=== PATIENT | female | born 1975 | race Caucasian/White ===

== ENCOUNTER → 2016-09-08 | Outpatient (CLI) | payer OTHER ==
[~2016-09-08] VITALS: Ht 167.6 cm; Wt 96.6 kg
[~2016-09-08] MED LIST: BACTROBAN OINT22 GM EXT; CEFUROXIME250 MG PO; CEPHALEXIN500 M1 PO; CETIRIZINE HCL10 MG PO; CLARITIN 10MG T10 MG PO; CLINDAMYCIN HC300 MG PO; ELAVIL 25 MG TA25 MG PO; FLUOXETINE HCL20 MG PO; GABAPENTIN400 MG PO; GERI-HYDROLAC140 GM TOP; HUMALOG100 UNIT/1 SQ; HUMALOG100 UNIT/3 SQ; HYDROXYZINE HCL25 MG PO; INVOKANA300 MG PO; KENALOG 0.5% CR15 GM TOP; KENALOG CREAM 015 GM TOP; LANTUS SOL100 UNIT/1 SQ; LANTUS100 UNIT/1 SQ; LEVOTHYROXINE125 MCG PO; LIPITOR TAB 2020 MG PO; MELOXICAM7.5 MG PO; METOPROLOL TART25 MG PO; NEURONTIN 400400 MG PO; NORVASC 5 MG TAB5 MG PO; OMNICEF 300 MG300 MG PO; PROZAC 20 MG CA20 MG PO; SIMVASTATIN20 MG PO; ZYRTEC10 MG PO
== END ==
LOC: OPSV 11:53
DX: M86.671 Other chronic osteomyelitis, right ankle and foot (principal)
CPT/HCPCS: 36415; 82550; 86140; 96365; J0878; J7050

== ENCOUNTER → 2016-09-15 | Outpatient (CLI) | payer OTHER | LOC: OPSV 12:40 | PROVIDERS: Internal Medicine Nephrology | DX: Z48.00 Encounter for change or removal of nonsurgical wound dressing (principal); M86.9 Osteomyelitis, unspecified; N17.9 Acute kidney failure, unspecified | CPT/HCPCS: 36592; 80053; 82043; 82550; 82570; 86140; 89050; G0463 ==

== ENCOUNTER → 2016-09-22 | Outpatient (CLI) | payer OTHER | LOC: OPSV 13:00 | DX: Z48.00 Encounter for change or removal of nonsurgical wound dressing (principal); M86.9 Osteomyelitis, unspecified | CPT/HCPCS: 36415; 86140; G0463 ==

== ENCOUNTER → 2016-09-27 | Outpatient (CLI) | payer OTHER ==
[2016-09-27 13:54] LABS: HEMOGLOBIN 12.3 gm/dl (12.3-15.3); RED BLOOD COUNT 4.13 M/UL (4.00-5.10); WHITE BLOOD COUNT 10.4 K/UL (4.5-11.0)
== END ==
LOC: OPSV 09-26 10:00
PROVIDERS: Nurse Practitioner Family
DX: M86.9 Osteomyelitis, unspecified (principal)
CPT/HCPCS: 36592; 80053; 82550; 85027; 86140; G0463

== ENCOUNTER → 2016-10-04 | Outpatient (CLI) | payer OTHER ==
[2016-10-04 17:38] LABS: HEMOGLOBIN 11.5 gm/dl (12.3-15.3); RED BLOOD COUNT 3.84 M/UL (4.00-5.10); WHITE BLOOD COUNT 10.9 K/UL (4.5-11.0)
== END ==
LOC: OPSV 11:00
PROVIDERS: Podiatrist Foot & Ankle Surgery
DX: Z48.00 Encounter for change or removal of nonsurgical wound dressing (principal); M86.9 Osteomyelitis, unspecified; N17.9 Acute kidney failure, unspecified; E11.621 Type 2 diabetes mellitus with foot ulcer
CPT/HCPCS: 36415; 80053; 82550; 85027; 86140; G0463

== ENCOUNTER → 2016-10-11 | Outpatient (CLI) | payer OTHER ==
[2016-10-11 12:14] LABS: HEMOGLOBIN 11.4 gm/dl (12.3-15.3); RED BLOOD COUNT 3.81 M/UL (4.00-5.10); WHITE BLOOD COUNT 11.2 K/UL (4.5-11.0)
== END ==
LOC: OPSV 11:40
PROVIDERS: Podiatrist Foot & Ankle Surgery
DX: E11.65 Type 2 diabetes mellitus with hyperglycemia (principal); N20.0 Calculus of kidney; M86.9 Osteomyelitis, unspecified
CPT/HCPCS: 36592; 80053; 82550; 85027; 86140; G0463

== ENCOUNTER → 2016-10-18 | Outpatient (CLI) | payer OTHER ==
[2016-10-18 12:30] LABS: HEMOGLOBIN 11.3 gm/dl (12.3-15.3); RED BLOOD COUNT 3.76 M/UL (4.00-5.10)
== END ==
LOC: OPSV 11:36
PROVIDERS: Podiatrist Foot & Ankle Surgery
DX: Z45.2 Encounter for adjustment and management of vascular access device (principal); M86.9 Osteomyelitis, unspecified
CPT/HCPCS: 36415; 80053; 82550; 85027; 86140; G0463

== ENCOUNTER → 2016-10-25 | Outpatient (CLI) | payer OTHER ==
[2016-10-25 12:17] LABS: HEMOGLOBIN 11.2 gm/dl (12.3-15.3); RED BLOOD COUNT 3.74 M/UL (4.00-5.10); WHITE BLOOD COUNT 10.2 K/UL (4.5-11.0)
== END ==
LOC: OPSV 11:40
PROVIDERS: Podiatrist Foot & Ankle Surgery
DX: M86.9 Osteomyelitis, unspecified (principal)
CPT/HCPCS: 36592; 80053; 82550; 85027; 86140; G0463

== ENCOUNTER → 2016-10-25 | Outpatient (CLI) | payer OTHER | LOC: KOH-I 08-31 14:30 | DX: I73.9 Peripheral vascular disease, unspecified (principal) | CPT/HCPCS: 93922; 93925 ==

== ENCOUNTER → 2016-11-01 | Outpatient (CLI) | payer OTHER ==
[2016-11-01 13:38] LABS: RED BLOOD COUNT 3.69 M/UL (4.00-5.10); WHITE BLOOD COUNT 9.3 K/UL (4.5-11.0)
== END ==
LOC: OPSV 10:00
PROVIDERS: Podiatrist Foot & Ankle Surgery
DX: M86.9 Osteomyelitis, unspecified (principal)
CPT/HCPCS: 36592; 80053; 82550; 85027; 86140; G0463

== ENCOUNTER → 2016-11-02 | Outpatient (CLI) | payer OTHER | LOC: OPSV 17:58 | DX: Z45.2 Encounter for adjustment and management of vascular access device (principal); M86.8X7 Other osteomyelitis, ankle and foot | CPT/HCPCS: G0463 ==

== ENCOUNTER 2016-12-11 14:59 | Emergency (ER) | payer OTHER | END 2016-12-11 16:00 | disposition left against medical advice (07) | LOC: ER1 14:59 | DX: Z53.21 Procedure and treatment not carried out due to patient leaving prior to being seen by health care provider (principal) ==

== ENCOUNTER → 2020-08-18 | Outpatient (CLI) | payer OTHER ==
[~2020-08-18] MED LIST changes: +ABILIFY 2 MG TAB2 MG PO; +ATIVAN1 MG PO; +BACTROBAN CREAM15 GM TOP; +CLEOCIN HCL300 MG PO; +CLINDAMYCIN HC150 MG PO; +CYCLOBENZAPRINE5 MG PO; +FLEXERIL 10 MG10 MG PO; +IBUPROFEN600 MG PO; +IBUPROFEN800 MG PO; +KEFLEX CAP 500500 MG PO; +LODINE CAP 300300 MG PO; +PREDNISONE 10 M10 MG PO; +TYLENOL 325MG325 MG PO; +ZOFRAN ODT4 MG PO; +ZOFRAN4 MG PO; +[UNRECOGNIZED DRUG - OTHER] SQ
== END ==
LOC: MAMO 07-23 10:00 → US 07-23 10:30 → MAMO 09:24
DX: R92.8 Other abnormal and inconclusive findings on diagnostic imaging of breast (principal); Z85.850 Personal history of malignant neoplasm of thyroid
CPT/HCPCS: 76641-LT; 76641-RT; 77066; G0279

== ENCOUNTER → 2020-09-17 | Outpatient (CLI) | payer OTHER | LOC: LAB 09:23 | PROVIDERS: Internal Medicine Nephrology | DX: N18.30 Chronic kidney disease, stage 3 unspecified (principal); E55.9 Vitamin D deficiency, unspecified | CPT/HCPCS: 36415; 80053; 82570; 84156 ==

== ENCOUNTER → 2020-12-07 | Outpatient (CLI) | payer OTHER | LOC: KOH-I 11:16 | DX: M79.671 Pain in right foot (principal) | CPT/HCPCS: 73630 ==

== ENCOUNTER → 2020-12-15 | Outpatient (CLI) | payer OTHER | LOC: EMI 09:00 | DX: R56.9 Unspecified convulsions (principal) | CPT/HCPCS: 70553; A9577 ==

== ENCOUNTER → 2020-12-23 | Outpatient (CLI) | payer OTHER | LOC: LAB 09:01 | PROVIDERS: Internal Medicine Nephrology | DX: N18.30 Chronic kidney disease, stage 3 unspecified (principal); E55.9 Vitamin D deficiency, unspecified | CPT/HCPCS: 36415; 80053; 82570; 83970; 84100; 84156 ==

== ENCOUNTER → 2021-04-26 | Outpatient (CLI) | payer OTHER | LOC: EXRD 15:30 | DX: M25.561 Pain in right knee (principal); M54.50 Low back pain, unspecified; M54.2 Cervicalgia; M47.812 Spondylosis without myelopathy or radiculopathy, cervical region; M47.816 Spondylosis without myelopathy or radiculopathy, lumbar region | CPT/HCPCS: 72050; 72100; 73564 ==

== ENCOUNTER → 2021-06-14 | Outpatient (CLI) | payer OTHER | LOC: KOH-I 13:42 | DX: M79.672 Pain in left foot (principal); M20.12 Hallux valgus (acquired), left foot | CPT/HCPCS: 73610; 73630 ==

== ENCOUNTER 2021-09-15 14:08 | Emergency (ER) | payer OTHER ==
[2021-09-15] MEDS ORDERED: IBUPROFEN800 MG PO (14:52)
== END 2021-09-15 15:15 | disposition home or self-care (01) ==
LOC: ER1 14:08
DX: M75.102 Unspecified rotator cuff tear or rupture of left shoulder, not specified as traumatic (principal)
CPT/HCPCS: 73030; 96374; 99283; J1885

== ENCOUNTER → 2021-10-25 | Outpatient (CLI) | payer OTHER | LOC: OPSV 13:17 | PROVIDERS: Internal Medicine Nephrology | DX: N18.32 Chronic kidney disease, stage 3b (principal); E55.9 Vitamin D deficiency, unspecified | CPT/HCPCS: 36415; 80053; 82570; 84156 ==

== ENCOUNTER → 2021-10-26 | Outpatient (CLI) | payer OTHER ==
[~2021-10-26] VITALS: Ht 167.6 cm; Wt 99.8 kg
== END ==
LOC: OPSV 13:35
DX: A49.8 Other bacterial infections of unspecified site (principal)
CPT/HCPCS: 96372; J0696

== ENCOUNTER → 2021-10-27 | Outpatient (CLI) | payer OTHER ==
[~2021-10-27] VITALS: Ht 167.6 cm; Wt 99.8 kg
== END ==
LOC: OPSV 13:12
DX: A49.8 Other bacterial infections of unspecified site (principal)
CPT/HCPCS: 96372; J0696

== ENCOUNTER → 2021-10-28 | Outpatient (CLI) | payer OTHER | LOC: OPSV 13:36 | DX: L08.9 Local infection of the skin and subcutaneous tissue, unspecified (principal); B96.20 Unspecified Escherichia coli [E. coli] as the cause of diseases classified elsewhere | CPT/HCPCS: 96372; J0696 ==

== ENCOUNTER → 2021-10-29 | Outpatient (CLI) | payer OTHER | LOC: OPSV 07:00 → EROP 18:33 | DX: L08.9 Local infection of the skin and subcutaneous tissue, unspecified (principal); B96.20 Unspecified Escherichia coli [E. coli] as the cause of diseases classified elsewhere | CPT/HCPCS: 96372; J0696 ==

== ENCOUNTER → 2021-10-30 | Outpatient (CLI) | payer OTHER | LOC: OPSV 07:00 | DX: L08.9 Local infection of the skin and subcutaneous tissue, unspecified (principal); B96.20 Unspecified Escherichia coli [E. coli] as the cause of diseases classified elsewhere | CPT/HCPCS: 96372; J0696 ==

== ENCOUNTER → 2021-10-31 | Outpatient (CLI) | payer OTHER ==
[~2021-10-31] VITALS: Ht 167.6 cm; Wt 99.8 kg
== END ==
LOC: OPSV 13:22
DX: B96.20 Unspecified Escherichia coli [E. coli] as the cause of diseases classified elsewhere (principal)
CPT/HCPCS: 96372; J0696

== ENCOUNTER → 2021-11-01 | Outpatient (CLI) | payer OTHER ==
[~2021-11-01] VITALS: Ht 167.6 cm; Wt 99.8 kg
== END ==
LOC: OPSV 12:39
DX: B96.20 Unspecified Escherichia coli [E. coli] as the cause of diseases classified elsewhere (principal)
CPT/HCPCS: 96372; J0696

== ENCOUNTER → 2021-11-02 | Outpatient (CLI) | payer OTHER ==
[~2021-11-02] VITALS: Ht 167.6 cm; Wt 99.8 kg
== END ==
LOC: OPSV 07:00
DX: B96.20 Unspecified Escherichia coli [E. coli] as the cause of diseases classified elsewhere (principal)
CPT/HCPCS: 96372; J0696

== ENCOUNTER → 2021-11-03 | Outpatient (CLI) | payer OTHER | LOC: OPSV 13:47 | DX: L08.9 Local infection of the skin and subcutaneous tissue, unspecified (principal); B96.20 Unspecified Escherichia coli [E. coli] as the cause of diseases classified elsewhere | CPT/HCPCS: 96372; J0696 ==

== ENCOUNTER → 2021-11-04 | Outpatient (CLI) | payer OTHER ==
[~2021-11-04] VITALS: Ht 167.6 cm; Wt 99.8 kg
== END ==
LOC: OPSV 06:26
DX: B96.20 Unspecified Escherichia coli [E. coli] as the cause of diseases classified elsewhere (principal)
CPT/HCPCS: 96372; J0696

== ENCOUNTER → 2021-11-05 | Outpatient (CLI) | payer OTHER | LOC: EROP 07:00 → OPSV 07:00 → EROP 07:08 → OPSV 07:08 → EROP 17:32 | DX: B96.20 Unspecified Escherichia coli [E. coli] as the cause of diseases classified elsewhere (principal) | CPT/HCPCS: 96372; J0696 ==

== ENCOUNTER → 2021-11-06 | Outpatient (CLI) | payer OTHER | LOC: OPSV 07:00 → EROP 14:50 | DX: L08.9 Local infection of the skin and subcutaneous tissue, unspecified (principal); B96.20 Unspecified Escherichia coli [E. coli] as the cause of diseases classified elsewhere | CPT/HCPCS: 96372; J0696 ==

== ENCOUNTER → 2021-11-07 | Outpatient (CLI) | payer OTHER | LOC: OPSV 13:36 | DX: L08.9 Local infection of the skin and subcutaneous tissue, unspecified (principal); B96.20 Unspecified Escherichia coli [E. coli] as the cause of diseases classified elsewhere | CPT/HCPCS: 96372; J0696 ==

== ENCOUNTER → 2021-11-21 | Outpatient (CLI) | payer OTHER | LOC: KOH-I 14:36 | DX: M79.672 Pain in left foot (principal); M21.611 Bunion of right foot; M19.071 Primary osteoarthritis, right ankle and foot; M25.474 Effusion, right foot | CPT/HCPCS: 73630 ==

== ENCOUNTER 2021-11-27 07:13 | Inpatient (IN) | payer OTHER ==
[~2021-11-27] VITALS: Ht 167.6 cm; Wt 99.8 kg
[~2021-11-27 07:13] MED LIST changes: +BASAGLAR K100 UNIT/1 SQ; +LEVOFLOXACIN750 MG PO; +LEVOTHYROXINE150 MCG PO; +METOPROLOL SUCC25 MG PO; -NEURONTIN 400400 MG PO; +NEURONTIN600 MG PO; +VISTARIL50 MG PO; -[UNRECOGNIZED DRUG - OTHER] SQ
[2021-11-27 08:11] LABS: HEMOGLOBIN 11.7 gm/dl (12.3-15.3); RED BLOOD COUNT 3.83 M/UL (4.00-5.10); WHITE BLOOD COUNT 10.5 K/UL (4.5-11.0)
[2021-11-27] MEDS ORDERED: BUSPIRONE HCL30 MG PO (12:04)
[2021-11-27] MEDS ORDERED: ONDANSETRON ODT4 MG PO (12:07)
[2021-11-27] MEDS ORDERED: TRAMADOL HCL50 MG PO (12:08)
[2021-11-27] MEDS ORDERED: CYCLOBENZAPRINE10 MG PO (12:10)
[2021-11-27] MEDS ORDERED: BYDUREON SQ (12:21)
[2021-11-27] MEDS ORDERED: HYDRALAZINE HCL25 MG PO (12:22)
[2021-11-27] MEDS ORDERED: ZYVOX600 MG PO (12:22)
[2021-11-27] MEDS ORDERED: MEDROXYPRO150 MG/11 IM (12:23)
[2021-11-27] MEDS ORDERED: MONTELUKAST SOD10 MG PO (12:24)
[2021-11-27] MEDS ORDERED: OMEPRAZOLE40 MG PO (12:24)
[2021-11-27] MEDS ORDERED: ABILIFY2 MG PO (12:25)
[2021-11-28 03:52] LABS: HEMOGLOBIN 11.4 gm/dl (12.3-15.3); RED BLOOD COUNT 3.71 M/UL (4.00-5.10)
[2021-11-29 06:22] LABS: HEMOGLOBIN 11.6 gm/dl (12.3-15.3); RED BLOOD COUNT 3.8 M/UL (4.00-5.10); WHITE BLOOD COUNT 12.6 K/UL (4.5-11.0)
[2021-11-30 06:26] LABS: HEMOGLOBIN 11.4 gm/dl (12.3-15.3); RED BLOOD COUNT 3.63 M/UL (4.00-5.10); WHITE BLOOD COUNT 13.9 K/UL (4.5-11.0)
[2021-12-01 06:59] LABS: HEMOGLOBIN 10.8 gm/dl (12.3-15.3); RED BLOOD COUNT 3.53 M/UL (4.00-5.10); WHITE BLOOD COUNT 10.7 K/UL (4.5-11.0)
[2021-12-02 07:03] LABS: HEMOGLOBIN 10.7 gm/dl (12.3-15.3); RED BLOOD COUNT 3.63 M/UL (4.00-5.10); WHITE BLOOD COUNT 11.3 K/UL (4.5-11.0)
[2021-12-03 06:42] LABS: HEMOGLOBIN 10.6 gm/dl (12.3-15.3); RED BLOOD COUNT 3.53 M/UL (4.00-5.10); WHITE BLOOD COUNT 12.1 K/UL (4.5-11.0)
[2021-12-04 03:36] LABS: HEMOGLOBIN 10.5 gm/dl (12.3-15.3); RED BLOOD COUNT 3.45 M/UL (4.00-5.10); WHITE BLOOD COUNT 10.1 K/UL (4.5-11.0)
--- NOTE | 2021-12-04 10:19 | NUR ---
DRESSING CHANGED TO LEFT FOOT WET PACKING
[2021-12-05 05:15] LABS: HEMOGLOBIN 10.5 gm/dl (12.3-15.3); RED BLOOD COUNT 3.46 M/UL (4.00-5.10); WHITE BLOOD COUNT 10.6 K/UL (4.5-11.0)
--- NOTE | 2021-12-05 13:29 | NUR ---
PTS DRESSINGS CHANGED ON BOTH FEET AFTER PT. GOT OUT OF SHOWER. FEET WERE WRAPPED WITH PLASTIC WHILE PT. TOOK SHOWER.
[2021-12-06 06:21] LABS: HEMOGLOBIN 10.4 gm/dl (12.3-15.3); RED BLOOD COUNT 3.44 M/UL (4.00-5.10); WHITE BLOOD COUNT 8.7 K/UL (4.5-11.0)
[2021-12-07] MEDS ORDERED: GABAPENTIN300 MG PO (10:37)
[2021-12-07] MEDS ORDERED: HUMALOG 10100 UNITS/ SC (10:37)
[2021-12-07] MEDS ORDERED: CEFEPIME 11 GM/50 ML IV (10:37)
[2021-12-07] MEDS ORDERED: ZYVOX IV 6600 MG/300 INJ (10:37)
--- NOTE | 2021-12-08 14:53 | NUR ---
1230 Patient had agreed to stay to get evening antibiotics at 5:00pm. Now states she has an appt. this afternoon that she can't miss. Dr Tolbert called to inform. She stated if patient would agree to stay we could give the IV antibiotics now, otherwise just chart the patient was noncompliant. Patient agreed to receive the Cefepime since it only takes an hour. [id number] Patient will be discharged home with Saline Lock to left forearm, #22 Gauge that was inserted last night. [facility] to be out in AM to start IV Antibiotics & also to do dressing changes to left foot.
== END 2021-12-08 15:00 | disposition home or self-care (01) | DRG 264 ==
LOC: ER1 07:13 → MED SURG 4 10:11 → CDU 10:11 → MED SURG 4 15:10
PROVIDERS: Emergency Medicine; Internal Medicine; Physician Assistant; ADMIT Internal Medicine
PROC: 02HV33Z Insertion of Infusion Device into Superior Vena Cava, Percutaneous Approach (ICD-10-PCS; principal; 2021-12-03)
PROC: 0JBP0ZZ Excision of Left Lower Leg Subcutaneous Tissue and Fascia, Open Approach (ICD-10-PCS; 2021-12-08)
PROC: 0J9P0ZZ Drainage of Left Lower Leg Subcutaneous Tissue and Fascia, Open Approach (ICD-10-PCS; 2021-12-08)
DX: E11.52 Type 2 diabetes mellitus with diabetic peripheral angiopathy with gangrene (principal); I96 Gangrene, not elsewhere classified; L03.116 Cellulitis of left lower limb; E87.1 Hypo-osmolality and hyponatremia; N17.9 Acute kidney failure, unspecified; E11.22 Type 2 diabetes mellitus with diabetic chronic kidney disease; N18.30 Chronic kidney disease, stage 3 unspecified; E03.9 Hypothyroidism, unspecified; I12.9 Hypertensive chronic kidney disease with stage 1 through stage 4 chronic kidney disease, or unspecified chronic kidney disease; E83.42 Hypomagnesemia; E11.40 Type 2 diabetes mellitus with diabetic neuropathy, unspecified; E11.65 Type 2 diabetes mellitus with hyperglycemia; E11.621 Type 2 diabetes mellitus with foot ulcer; E78.5 Hyperlipidemia, unspecified; B95.62 Methicillin resistant Staphylococcus aureus infection as the cause of diseases classified elsewhere; Z85.850 Personal history of malignant neoplasm of thyroid; Z90.89 Acquired absence of other organs; Z98.890 Other specified postprocedural states; Z88.1 Allergy status to other antibiotic agents; Z82.49 Family history of ischemic heart disease and other diseases of the circulatory system; Z83.3 Family history of diabetes mellitus; Z79.4 Long term (current) use of insulin; Z79.899 Other long term (current) drug therapy
CPT/HCPCS: 36415; 73620; 73700; 73718; 80048; 80053; 81001; 82009; 82800; 82962; 83735; 85025; 85027; 85652; 86140; 87070; 87077; 87186; 87205; 96361; 96374; 99285; J0692; J1650; J2001; J2020; J2250; J2270; J2405; J2704; J2795; J3010; J3370; J7030; J7040; J7050; J7070; J7120; Q0177

== ENCOUNTER → 2021-12-09 | Outpatient (CLI) | payer OTHER ==
[~2021-12-09] MED LIST changes: +ABILIFY2 MG PO; +BUSPIRONE HCL30 MG PO; +BYDUREON SQ; +CEFEPIME 11 GM/50 ML IV; +CYCLOBENZAPRINE10 MG PO; +GABAPENTIN300 MG PO; +HUMALOG 10100 UNITS/ SC; +HYDRALAZINE HCL25 MG PO; +MEDROXYPRO150 MG/11 IM; +MONTELUKAST SOD10 MG PO; +OMEPRAZOLE40 MG PO; +ONDANSETRON ODT4 MG PO; +TRAMADOL HCL50 MG PO; +ZYVOX IV 6600 MG/300 INJ; +ZYVOX600 MG PO
== END | disposition home or self-care (01) ==
LOC: OPSV 12:00
DX: A49.02 Methicillin resistant Staphylococcus aureus infection, unspecified site (principal); L08.9 Local infection of the skin and subcutaneous tissue, unspecified

== ENCOUNTER → 2021-12-15 | Outpatient (CLI) | payer OTHER | LOC: OPSV 12:00 | DX: E11.628 Type 2 diabetes mellitus with other skin complications (principal); L08.9 Local infection of the skin and subcutaneous tissue, unspecified; B95.62 Methicillin resistant Staphylococcus aureus infection as the cause of diseases classified elsewhere | CPT/HCPCS: 71045; C1751 ==

== ENCOUNTER → 2021-12-23 | Outpatient (CLI) | payer OTHER ==
[2021-12-23 18:00] LABS: HEMOGLOBIN 12.1 gm/dl (12.3-15.3); RED BLOOD COUNT 3.97 M/UL (4.00-5.10); WHITE BLOOD COUNT 6.5 K/UL (4.5-11.0)
== END ==
LOC: LAB 15:56
PROVIDERS: Podiatrist Foot & Ankle Surgery
DX: M86.9 Osteomyelitis, unspecified (principal)
CPT/HCPCS: 85025; 85027; 85652; 86140

== ENCOUNTER → 2022-01-05 | Outpatient (CLI) | payer OTHER | LOC: OPSV 15:00 | DX: E11.628 Type 2 diabetes mellitus with other skin complications (principal); L08.9 Local infection of the skin and subcutaneous tissue, unspecified; B95.62 Methicillin resistant Staphylococcus aureus infection as the cause of diseases classified elsewhere | CPT/HCPCS: 96365; 96366; J0875; J7070 ==

== ENCOUNTER → 2022-01-16 | Outpatient (CLI) | payer OTHER | LOC: OPSV 01-13 13:00 | DX: Z45.2 Encounter for adjustment and management of vascular access device (principal) | CPT/HCPCS: G0463 ==

== ENCOUNTER → 2022-01-19 | Outpatient (CLI) | payer OTHER ==
[~2022-01-19] VITALS: Ht 167.6 cm; Wt 99.8 kg
[2022-01-19 15:08] LABS: HEMOGLOBIN 12.4 gm/dl (12.3-15.3); RED BLOOD COUNT 4.15 M/UL (4.00-5.10); WHITE BLOOD COUNT 9.4 K/UL (4.5-11.0)
== END ==
LOC: OPSV 01-18 14:00
PROVIDERS: Podiatrist Foot & Ankle Surgery
DX: L03.90 Cellulitis, unspecified (principal); N18.9 Chronic kidney disease, unspecified
CPT/HCPCS: 80048; 85027; 85652; 86140; 96365; J0875; J7070

== ENCOUNTER 2022-01-24 13:53 | Observation (INO) | payer OTHER ==
[~2022-01-24] VITALS: Ht 167.6 cm; Wt 102.1 kg
[~2022-01-24 13:53] MED LIST changes: -DEX4 GLUCOSE4 GM PO; -GABAPENTIN600 MG PO
[2022-01-24 14:50] LABS: HEMOGLOBIN 12.6 gm/dl (12.3-15.3); RED BLOOD COUNT 4.25 M/UL (4.00-5.10); WHITE BLOOD COUNT 9.1 K/UL (4.5-11.0)
[2022-01-25 04:32] LABS: HEMOGLOBIN 10.8 gm/dl (12.3-15.3)
[2022-01-25 04:35] LABS: RED BLOOD COUNT 3.66 M/UL (4.00-5.10); WHITE BLOOD COUNT 11.5 K/UL (4.5-11.0)
[2022-01-25] MEDS ORDERED: GABAPENTIN600 MG PO (14:56)
[2022-01-26 03:28] LABS: HEMOGLOBIN 10.3 gm/dl (12.3-15.3); RED BLOOD COUNT 3.49 M/UL (4.00-5.10); WHITE BLOOD COUNT 12.3 K/UL (4.5-11.0)
[2022-01-26] MEDS ORDERED: LEVOFLOXACIN750 MG PO (17:37)
[2022-01-26] MEDS ORDERED: HUMALOG 10100 UNITS/ SC (17:37)
[2022-01-26] MEDS ORDERED: DEX4 GLUCOSE4 GM PO (17:42)
== END 2022-01-26 18:40 | disposition home or self-care (01) ==
LOC: ER1 13:53 → CDU 18:37 → M/S 18:37
PROVIDERS: Emergency Medicine; Internal Medicine; ADMIT Internal Medicine
DX: E11.65 Type 2 diabetes mellitus with hyperglycemia (principal); E87.2 Acidosis; E11.621 Type 2 diabetes mellitus with foot ulcer; L97.519 Non-pressure chronic ulcer of other part of right foot with unspecified severity; E11.40 Type 2 diabetes mellitus with diabetic neuropathy, unspecified; I12.9 Hypertensive chronic kidney disease with stage 1 through stage 4 chronic kidney disease, or unspecified chronic kidney disease; E11.22 Type 2 diabetes mellitus with diabetic chronic kidney disease; N18.30 Chronic kidney disease, stage 3 unspecified; E78.5 Hyperlipidemia, unspecified; R79.1 Abnormal coagulation profile; E87.1 Hypo-osmolality and hyponatremia; R00.0 Tachycardia, unspecified; Z85.850 Personal history of malignant neoplasm of thyroid; Z95.828 Presence of other vascular implants and grafts; Z88.1 Allergy status to other antibiotic agents; Z20.822 Contact with and (suspected) exposure to COVID-19
CPT/HCPCS: 36415; 70450; 71045; 73630; 80053; 81001; 82550; 82553; 82962; 83605; 83735; 84439; 84443; 84484; 84703; 85025; 85027; 85379; 85652; 86140; 87040; 87086; 93005; 93970; 96361; 96374; 96375; 96376; 99285; G0378; J0692; J0696; Q9967; U0002

== ENCOUNTER → 2022-01-24 | Outpatient (CLI) | payer OTHER ==
[~2022-01-24] MED LIST changes: -BYDUREON SQ; +DEX4 GLUCOSE4 GM PO; +EXENATIDE 2 MG/0.85 ML SQ; +GABAPENTIN600 MG PO
== END ==
LOC: OPSV 01-23 15:00
DX: Z53.9 Procedure and treatment not carried out, unspecified reason (principal)
CPT/HCPCS: G0463